=== PATIENT | male | born 1975 | race Caucasian/White ===

== ENCOUNTER 2021-08-07 11:21 | Day surgery (SDC) | payer OTHER ==
[2021-08-04 16:28] LABS: BASOPHILS % (AUTO) 0.6 % (0-1); EOSINOPHILS # (AUTO) 0.2 X10'3 (0-0.9); EOSINOPHILS % (AUTO) 3.2 % (0-6); MEAN CORPUSCULAR HEMOGLOBIN 29.9 PG (27.0-31.0); MEAN CORPUSCULAR HGB CONC 34.2 g/dL (33.0-36.5); MEAN CORPUSCULAR VOLUME 87.5 FL (78-98); MEAN PLATELET VOLUME 8.3 FL (7.4-10.4); MONOCYTES # (AUTO) 0.8 X10'3 (0-0.9); MONOCYTES % (AUTO) 11.1 % (2-12); NEUTROPHILS # (AUTO) 4.2 X10'3 (1.8-7.7); NEUTROPHILS % (AUTO) 58.1 % (42-75); PRE OP HEMATOCRIT 41.6 % (42.0-52.0); PRE OP HEMOGLOBIN 14.2 g/dL (14.0-17.9); PRE OP PLATELET COUNT 214 X10'3 (140-440); RED BLOOD COUNT 4.75 X10'6 (4.70-6.10); RED CELL DISTRIBUTION WIDTH 13.1 % (11.5-14.5)
[2021-08-04 16:46] LABS: ALBUMIN 3.9 G/DL (3.4-5.0); ALBUMIN/GLOBULIN RATIO 1.3 (1.1-1.5); ALKALINE PHOSPHATASE 57 IU/L (46-116); BLOOD UREA NITROGEN 17 MG/DL (7-18); BUN/CREATININE RATIO 18.1 (5.4-32.0); CALCIUM 8.7 MG/DL (8.5-10.1); CHLORIDE 107 MMOL/L (99-107); CREATININE 0.94 MG/DL (0.60-1.10); PRE OP ALT 49 U/L (30-65); PRE OP ANION GAP 5 (8-16); PRE OP AST 44 U/L (10-37); PRE OP BILIRUB, TOTAL 0.3 MG/DL (0.0-1.0); PRE OP GLUCOSE 97 MG/DL (70-104); PRE OP POTASSIUM 4.6 MMOL/L (3.4-5.1); PRE OP SODIUM 137 MMOL/L (135-145); TOTAL CARBON DIOXIDE 25.4 MMOL/L (24-32); TOTAL PROTEIN 6.8 G/DL (6.4-8.2); eGFR 86 ML/MIN
[2021-08-07] VITALS (7 sets, daily range): BP systolic 112–127; BP diastolic 78–87
[~2021-08-07] VITALS: Ht 180.3 cm; Wt 102.2 kg
[~2021-08-07 11:21] MED LIST: BUPR300T99 PO; GLUC-150 PO; LIDOcaine 0.5% (5mg/ml) 50ml vial ONE; QUET150T4 PO; VERA40TA5 PO; VITAMIN D PO; famotidine 20mg tablet PO ONE; ringers solution, lacted 1,000 ML IV SCH
[2021-08-07] MEDS ORDERED: hydrALAZINE 20mg/ml inj. IV PRN (11:35)
[2021-08-07] MEDS ORDERED: ringers solution, lacted 1,000 ML IV SCH (11:35)
[2021-08-07] MEDS ORDERED: fentaNYL/PF 50MCG/1 ML 2ML syringe IV PRN ×2 (11:35)
[2021-08-07] MEDS ORDERED: labetalol 20mg/4ml (5mg/ml) syringe IV PRN (11:35)
[2021-08-07] MEDS ORDERED: ondansetron/PF 4mg/2ml inj IV PRN (11:35)
[2021-08-07] MEDS ORDERED: morphine 2 MG/ML inj. syringe IV PRN (11:35)
[2021-08-07] MEDS ORDERED: morphine 4 MG/ML inj SYRINge IV PRN (11:35)
[2021-08-07] MEDS ORDERED: BUPIVAcaine/PF 7.5mg/ml (0.75%) 10ml vial ONE (12:01)
[2021-08-07] MEDS ORDERED: MIDAZolam 1 MG/ML 5ML VIAL ONE (12:15)
[2021-08-07] MEDS ORDERED: fentaNYL/PF 50MCG/1 ML 2ML syringe ONE (12:15)
--- NOTE | 2021-08-07 13:09 | NUR ---
Received from OR via [facility], accompanied by Anesthesiologist DR. ODONNELL and report given by Anesthesiolgist. BRACE+PINS WITH SMALL AMOUNT OF SANGENOUS DRAINAGE FROM AROUND PIN SITES. MD AWARE. DENIES PAIN. VSS. 20G PIV TO LEFT HAND WITH LR RUNNING AT 100ML/HR.
--- NOTE | 2021-08-07 13:50 | NUR ---
PATIENT RECOVERED AT 1349, DRESSED, GIVEN DISCHARGED INSTRUCTIONS. RIGHT MIDDLE FINGER WITH SOME DRIED BLOOD. PIV TO LEFT HAND REMOVED. CONTINUES TO DENY PAIN. VSS.
--- NOTE | 2021-08-07 14:49 | NUR ---
PATIENT'S RIDE ARRIVES, DISCHARGED HOME WITH BROTHERJONH WITH ALL BELONGINGS.
== END 2021-08-07 14:49 | disposition home or self-care (01) ==
LOC: PAS 11:21
PROVIDERS: ATTEND Orthopaedic Surgery Hand Surgery
DX: S62.612A Displaced fracture of proximal phalanx of right middle finger, initial encounter for closed fracture (principal); S62.622A Displaced fracture of middle phalanx of right middle finger, initial encounter for closed fracture; F32.A Depression, unspecified; F41.9 Anxiety disorder, unspecified; F43.10 Post-traumatic stress disorder, unspecified; Z87.891 Personal history of nicotine dependence; Z72.89 Other problems related to lifestyle; Z87.442 Personal history of urinary calculi; Z79.899 Other long term (current) drug therapy; Y04.0XXA Assault by unarmed brawl or fight, initial encounter; Y93.89 Activity, other specified; Y92.89 Other specified places as the place of occurrence of the external cause; Y99.8 Other external cause status
CPT/HCPCS: 20692; 26742; 36415; 80053; 82948; 85025; 93005; C1713; J0690; J2250; J3010; J3490; J7030; J7060; J7120; Z7506; Z7512; A4215; A4618; A7000